=== PATIENT | female | born 1985 | race African-American/Black ===

== ENCOUNTER 2022-06-29 09:42 | Emergency (ER) | payer MEDICAID ==
[~2022-06-29] VITALS: Ht 175.3 cm; Wt 90.0 kg
[~2022-06-29 09:42] MED LIST: CYCL-1 PO
[2022-06-29 10:02] VITALS: BP 115/71
[2022-06-29] MEDS ORDERED: orphenadrine citrate 60mg/2ml inj. IM ONE (14:05)
[2022-06-29] MEDS ORDERED: CYCL-1 PO (15:01)
== END 2022-06-29 15:17 | disposition home or self-care (01) ==
LOC: ER 09:42
DX: M62.830 Muscle spasm of back (principal); F12.90 Cannabis use, unspecified, uncomplicated; Z72.89 Other problems related to lifestyle; Z98.890 Other specified postprocedural states; Z79.899 Other long term (current) drug therapy
CPT/HCPCS: 96372; 99283; J2360